=== PATIENT | female | born 1940 | race Caucasian/White ===

== ENCOUNTER → 2017-10-04 | Outpatient (CLI) | payer MEDICARE ==
[~2017-10-04] MED LIST: ASPI-496 PO; ATOR80TA PO; CETI10CA PO; CHOL200024 PO; CYCL-259 PO; EZET10TA18 PO; HYDR-3240 PO; HYDR25TA6 PO; LIDO1ADH44 TD; LOSA50TA6 PO; MELA3TAB2 PO; NAPR220C2 PO; OXYM30SP NS; PSEU60TA2 PO; RALO60TA PO; UBID100C41 PO
== END | disposition home or self-care (01) ==
LOC: STAR 13:16
PROVIDERS: ATTEND Orthopaedic Surgery Orthopaedic Surgery of the Spine
DX: Z01.818 Encounter for other preprocedural examination (principal); M48.061 Spinal stenosis, lumbar region without neurogenic claudication; M43.16 Spondylolisthesis, lumbar region
CPT/HCPCS: 93005

== ENCOUNTER 2017-10-08 07:48 | Inpatient (IN) | payer MEDICARE ==
[~2017-10-08] VITALS: Ht 151.1 cm; Wt 60.0 kg
[~2017-10-08 07:48] MED LIST changes: +BUPIVACAINE/PF 0.5% ONE; +EPINEPHRINE 1 MG/ML, 1ML ONE; +THROMBIN 5,000 UNIT VIAL TP ONE; +TRANEXAMIC ACID 100 MG/ML, 10ML ONE; +VANCOMYCIN 1,000 MG ONE
[2017-10-08 08:08] VITALS: BP 140/95
[2017-10-08] MEDS: LACTATED RINGERS 1,000 ML IV SCH ×2 (08:26→23:56)
[2017-10-08] MEDS ORDERED: LIDOCAINE-MPF 1%, 2ML INFIL ONE (08:30)
[2017-10-08] MEDS ORDERED: PROPOFOL 10 MG/ML, 20ML ONE (08:41)
[2017-10-08] MEDS ORDERED: PROPOFOL 50 ML ONE ×2 (08:41→09:28)
[2017-10-08] MEDS ORDERED: FENTANYL PF 100 MCG/2ML ONE ×3 (08:48→11:52)
[2017-10-08] MEDS ORDERED: LIDOCAINE-MPF 2% ,5ML ONE (08:55)
[2017-10-08] MEDS ORDERED: CEFAZOLIN 1,000 MG ONE (08:55)
[2017-10-08] MEDS ORDERED: SUGAMMADEX 200 MG/2 ML IVPush ONE (08:55)
[2017-10-08] MEDS ORDERED: SUCCINYLCHOLINE 20 MG/ML, 10ML ONE (08:55)
[2017-10-08] MEDS ORDERED: ROCURONIUM 10 MG/ML,10ML ONE (08:55)
[2017-10-08] MEDS ORDERED: BISACODYL 10 MG SUPP PR PRN (09:00)
[2017-10-08] MEDS ORDERED: HYDROmorphone PCA 30 MG/30 ML IV PRN ×2 (09:00→12:30)
[2017-10-08] MEDS: LOSARTAN 50MG TABLET PO SCH (09:00)
[2017-10-08] MEDS ORDERED: MEPERIDINE/PF 25MG/0.5ML IVPush PRN (09:00)
[2017-10-08] MEDS ORDERED: DIAZEPAM 2 MG TABLET PO PRN (09:00)
[2017-10-08] MEDS ORDERED: OXYcodone/APAP 5/325MG TABLET PO PRN (09:00)
[2017-10-08] MEDS ORDERED: OXYcodone 5 MG/5 ML ORAL.SOL UDC PO PRN (09:00)
[2017-10-08] MEDS ORDERED: HYDROcodone/APAP 7.5-325MG/15ML UDC PO PRN (09:00)
[2017-10-08] MEDS: HYDROCHLOROTHIAZIDE 25 MG TABLET PO SCH (09:00)
[2017-10-08] MEDS ORDERED: MORPHINE SULFATE 4 MG/ML, 1ML IV PRN (09:00)
[2017-10-08] MEDS ORDERED: PHARMACY MAY ADJ FOR RENAL FX MC PRN (09:00)
[2017-10-08] MEDS ORDERED: HYDROmorphone 1 MG/ML, 1ML IV PRN (09:00)
[2017-10-08] MEDS ORDERED: ACETAMINOPHEN 325 MG TABLET PO PRN ×2 (09:00)
[2017-10-08] MEDS: ATORVASTATIN 80 MG TABLET PO SCH (09:00)
[2017-10-08] MEDS ORDERED: OXYMETAZOLINE NASAL SPRAY 0.05%, 15ML NAS PRN ×2 (09:00→15:00)
[2017-10-08] MEDS: EZETIMIBE 10 MG TABLET PO SCH (09:00)
[2017-10-08] MEDS ORDERED: SENNA/DOCUSATE TABLET PO PRN (09:00)
[2017-10-08] MEDS: RALOXIFENE 60 MG TABLET PO SCH (09:00)
[2017-10-08] MEDS ORDERED: CYCLOBENZAPRINE 10 MG TABLET PO PRN (09:00)
[2017-10-08] MEDS ORDERED: MAGNESIUM HYDROXIDE 8%, 30ML UDC PO PRN (09:00)
[2017-10-08] MEDS: ASPIRIN 81 MG TABLET EC PO SCH (09:00)
[2017-10-08] MEDS ORDERED: REMIFENTANIL 2 MG ONE ×2 (09:08)
[2017-10-08] MEDS ORDERED: OXYMETAZOLINE MC SCH (09:30)
[2017-10-08] MEDS ORDERED: BUPIVACAINE LIPOSOME/PF INFIL ONE (11:00)
[2017-10-08] MEDS ORDERED: TRANEXAMIC ACID 100 MG/ML, 10ML ONE (11:27)
[2017-10-08] MEDS ORDERED: HYDROmorphone PCA 30 MG/30 ML ONE (11:48)
[2017-10-08] MEDS ORDERED: ACETAMINOPHEN 650 MG/20.3 ML UDC ONE (11:51)
[2017-10-08] MEDS ORDERED: OXYcodone 5 MG/5 ML ORAL.SOL UDC ONE (11:52)
[2017-10-08] MEDS ORDERED: CYCLOBENZAPRINE 10 MG TABLET ONE (11:52)
[2017-10-08] MEDS: FENTANYL PF 100 MCG/2ML IV PRN ×4 (11:58→12:25)
[2017-10-08 13:32] VITALS: BP 100/60
[2017-10-08 20:16] VITALS: BP 135/70
[2017-10-08] MEDS ORDERED: CETIRIZINE 10 MG TABLET PO SCH (21:00)
[2017-10-08] MEDS ORDERED: MELATONIN 3 MG TABLET PO SCH (21:00)
[2017-10-09] VITALS: BP 111/65
[2017-10-09 04:00] VITALS: BP 90/54
[2017-10-09 06:44] VITALS: BP 101/64
[2017-10-09] MEDS: LOSARTAN 50MG TABLET PO SCH (08:42)
[2017-10-09] MEDS: ASPIRIN 81 MG TABLET EC PO SCH (08:43)
[2017-10-09] MEDS: ATORVASTATIN 80 MG TABLET PO SCH (08:43)
[2017-10-09] MEDS: HYDROCHLOROTHIAZIDE 25 MG TABLET PO SCH (08:43)
[2017-10-09] MEDS: RALOXIFENE 60 MG TABLET PO SCH (08:43)
[2017-10-09] MEDS: EZETIMIBE 10 MG TABLET PO SCH (08:44)
[2017-10-09] MEDS ORDERED: HYDROcodone/APAP 10/325 MG TABLET PO PRN (09:00)
== END 2017-10-09 11:30 | disposition home or self-care (01) | DRG 455 ==
LOC: ORIP 07:48 → 4NOR 13:29
PROVIDERS: ADMIT Orthopaedic Surgery Orthopaedic Surgery of the Spine; ATTEND Orthopaedic Surgery Orthopaedic Surgery of the Spine
PROC: 4A11X4G Monitoring of Peripheral Nervous Electrical Activity, Intraoperative, External Approach (ICD-10-PCS; 2017-10-08)
PROC: 0SG0071 Fusion of Lumbar Vertebral Joint with Autologous Tissue Substitute, Posterior Approach, Posterior Column, Open Approach (ICD-10-PCS; 2017-10-08)
PROC: 0SG00AJ Fusion of Lumbar Vertebral Joint with Interbody Fusion Device, Posterior Approach, Anterior Column, Open Approach (ICD-10-PCS; principal; 2017-10-08 09:00)
DX: M48.061 Spinal stenosis, lumbar region without neurogenic claudication (principal); M43.16 Spondylolisthesis, lumbar region
CPT/HCPCS: 36415; 72100; 86850; 86900; C1713; C9290; J0171; J0690; J1170; J2704; J3010; J3370; J3490; C1762; J0330; J7120